=== PATIENT | male | born 1955 | race African-American/Black ===

== ENCOUNTER 2017-09-22 02:30 | Emergency (ER) | payer OTHER ==
[~2017-09-22] VITALS: Ht 177.8 cm; Wt 83.0 kg
[2017-09-22] MEDS ORDERED: IBUPROFEN 600MG TABLET PO ONE (09:45)
[2017-09-22 10:25] VITALS: BP 118/79
== END 2017-09-22 10:21 | disposition home or self-care (01) ==
LOC: ER 03:53
DX: L02.11 Cutaneous abscess of neck (principal); E11.9 Type 2 diabetes mellitus without complications; F17.200 Nicotine dependence, unspecified, uncomplicated
CPT/HCPCS: 99283

== ENCOUNTER 2022-05-29 08:39 | Emergency (ER) | payer OTHER, MEDICAID ==
[~2022-05-29] VITALS: Ht 177.8 cm; Wt 81.0 kg
[2022-05-29 08:41] VITALS: BP 135/85
[2022-05-29] MEDS ORDERED: TETANUS, DIPHTHERIA, PERTUSSIS VAC/PF 0.5ML (>10YR OLD) IM ONE ×2 (11:30→14:00)
[2022-05-29] MEDS ORDERED: IBUPROFEN 600MG TABLET PO ONE (11:30)
[2022-05-29] MEDS ORDERED: BACITRACIN ZINC OINT UDPKT TOP ONE (11:30)
[2022-05-29] MEDS ORDERED: LIDOCAINE HCL/PF 1% 10 MG/ML 5ML VIAL INFIL ONE (11:30)
[2022-05-29] MEDS ORDERED: BACITRACIN ZINC OINT UDPKT TOP SCH (13:45)
[2022-05-29] MEDS ORDERED: IBUPROFEN 600MG TABLET PO SCH (13:45)
[2022-05-29] MEDS ORDERED: LIDOCAINE HCL/PF 1% 10 MG/ML 5ML VIAL INFIL SCH (13:45)
[2022-05-29] MEDS ORDERED: IBUP-2028 MT (17:39)
[2022-05-29] MEDS ORDERED: CEPH500C2 MT (17:47)
== END 2022-05-29 17:58 | disposition home or self-care (01) ==
LOC: ER 08:39
DX: S61.312A Laceration without foreign body of right middle finger with damage to nail, initial encounter (principal); W18.30XA Fall on same level, unspecified, initial encounter; Y93.89 Activity, other specified; Y92.89 Other specified places as the place of occurrence of the external cause; Y99.8 Other external cause status
CPT/HCPCS: 12002; 90471; 90715; 99283; J3490; Z7610

== ENCOUNTER 2022-06-01 03:06 | Emergency (ER) | payer OTHER ==
[~2022-06-01] VITALS: Ht 180.3 cm; Wt 81.0 kg
[~2022-06-01 03:06] MED LIST: CEPH500C2 MT; IBUP-2028 MT
[2022-06-01 03:12] VITALS: BP 124/89
== END 2022-06-01 05:55 | disposition home or self-care (01) ==
LOC: ER 03:06
DX: Z48.00 Encounter for change or removal of nonsurgical wound dressing (principal); E78.00 Pure hypercholesterolemia, unspecified; E11.9 Type 2 diabetes mellitus without complications; Z98.890 Other specified postprocedural states
CPT/HCPCS: 99281